=== PATIENT | female | born 1950 | race Caucasian/White ===

== ENCOUNTER → 2017-12-25 | Outpatient (CLI) | payer OTHER ==
--- NOTE | 2017-12-25 17:09 | CARDNUC ---
[place] [address] CARDIAC NUCLEAR IMAGING REPORT Name: TATE BEAVERS Room: [facility]#: [id number] Admission: 12/25/17 Attend Phys: Maynor Archer, Discharge: Date of : 52 Date of Service: 12/25/17 1709 Report #: [id number] THIS REPORT FOR: //name// APPROVED REPORT Imaging Protocol: Rest Tc-99m/Stress Tc-99m 1 day Study performed: 12/25/2017 07:45:00 Indication: chest pain, arrythmia Patient Location: Out-Patient Stress Tech: Kate Rojas Stress Nurse: Alma Delia Fisher RN NM Tech:AMARIS Clark Ht: 5 ft 6 in Wt: 190 lbs BSA: 1.96 m2 BMI: 30.66 Medical History Medical History: hypertension Medications: losartan, amlodipine Allergies: estrogen, naprosyn, flu vaccine, thimerol, valcyclorvir Cardiac Risk Factors: age, hypertension, family hx Previous Cardiac Procedures: none Exercise History: Physically active Resting Data Rest SPECT myocardial perfusion imaging was performed in supine position 30 minutes following the intravenous injection of 10.5 mCi of Tc-99m Sestamibi. Time of rest injection: 0800 Date: 12/25/2017 Time of rest imagin The images were gated to evaluate regional wall motion and calculate left ventricular ejection fraction. Administration Route: IV Administration Site: Left AC Exercise Stress At peak stress, the patient was injected intravenously with 36.0mCi of Tc-99m Sestamibi. Time of stress injection: 919 Time of stress imagin Administration Route: IV Administration Site: Left AC Gated Stress SPECT was performed 30 [place] [address] CARDIAC NUCLEAR IMAGING REPORT Name: NIMESHYELITZA Room: [facility]#: [id number] Admission: 12/25/17 Attend Phys: Maynor Archer, Discharge: Date of : 52 Date of Service: 12/25/17 1709 Report #: [id number] injection. The images were gated to evaluate regional wall motion and calculate left ventricular ejection fraction. Prone imaging was performed. Stress Test Details Stress Test: Exercise stress testing was performed using a Gene protocol. HR Max Heart Rate (APMHR): 154 bpm Resting HR: 73 bpm Target HR (85% APMHR): 130 bpm Max HR Achieved: 154 bpm % of APMHR: 100 Recovery HR: 99 bpm BP Resting BP: 125/65 mmHg Recovery BP: 137/65 mmHg ECG Resting ECG: Sinus Rhythm, normal EKG Stress ECG: Sinus Tachycardia ST Change: Upsloping ST depression Maximum ST Deviation: 1 mm Arrhythmia: None Recovery ECG: Sinus Rhythm, normal EKG Recovery ST Change: None Recovery Arrhythmia: None Clinical Reason for Termination: Fatigue Stress Symptoms: Fatigue Exercise duration: 5 min 01 sec Exercise capacity: 7.02 METs Overall Exercise Capacity for Age: Normal The patient tolerated standard Gene protocol exercise without significant symptoms. Stress ECG Conclusion The baseline 12-lead EKG shows sinus rhythm with no significant ST or T wave abnormalities. EKGs obtained during and post exercise stress show [address] segment depression that does not meet diagnostic criteria for stress-induced ischemia. There were no stress-induced arrhythmias[place] [address] CARDIAC NUCLEAR IMAGING REPORT Name: TATE BEAVERS Room: [facility]#: [id number] Admission: 12/25/17 Attend Phys: Manyor Archer, Discharge: Date of : 52 Date of Service: 12/25/17 1709 Report #: [id number] Study: Good Artifact: No artifact Study Data At rest, the left ventricular ejection fraction was 79%.. Post stress, the left ventricular ejection was 77%.. TID = 0.79. Perfusion Normal left ventricular perfusion. Wall Motion Normal left ventricular wall motion. Nuclear Conclusion ECG Findings: negative for ischemia Clinical Findings: negative for ischemia Nuclear Findings: negative for ischemia Exercise Capacity: normal Left Ventricular Function: normal Risk Study: low Myocardial perfusion images show no defect to suggest infarct or ischemia. Gated study showed normal left ventricular systolic function. This is a low risk study. <Conclusion> The baseline 12-lead EKG shows sinus rhythm with no significant ST or T wave abnormalities. EKGs obtained during and post exercise stress show [address] segment depression that does not meet diagnostic criteria for stress-induced ischemia. There were no stress-induced arrhythmias. <ELECTRONICALLY SIGNED> By: Tio Mancilla MD, FACC 12/25/171708 08 08 Tio Mancilla MD, FACC /INF
== END ==
LOC: M.NUC 12-04 07:52
DX: I49.9 Cardiac arrhythmia, unspecified (principal); R07.89 Other chest pain